=== PATIENT | female | born 1960 | race American Indian/Alaskan Native ===

== ENCOUNTER 2016-07-28 20:30 | Emergency (ER) | payer MEDICAID ==
[2016-07-28 20:49] VITALS: BP 137/97; PULSE 90; RESP 13; TEMP 97.9; O2SAT 98
--- NOTE | 2016-07-28 21:05 | C.PDOC ---
History Of Present Illness 55 year old patient presents to the ED complaining of left 3rd toe pain for unclear period of time. . Patient states she has been seen by her information technology associate who referred her to pain management for her foot issues. pt is vague about when this toe pain started. Patient states she was taking Percocet, but ran out, no rx listed on [place] mechanical commissioning engineer aware for pt. she denies fever and chills. pt is poor historian and gives vague history Time Seen by Provider: 07/28/16 20:48 Chief Complaint (Nursing): Lower Extremity Problem/Injury History Per: Patient History/Exam Limitations: no limitations Onset/Duration Of Symptoms: Other Current Symptoms Are (Timing): Still Present Severity: Mild Pain Scale Rating Of: 3 Recent travel outside of the [place]: No Past Medical History Reviewed: Historical Data, Nursing Documentation, Vital Signs Vital Signs: Last Vital Signs Temp 97.9 F 07/28/16 20:48 Pulse 90 07/28/16 20:48 Resp 13 07/28/16 20:48 BP 137/97 H 07/28/16 20:48 Pulse Ox 98 07/28/16 23:09 - Medical History PMH: Asthma, HTN Family History: States: Unknown Family Hx - Social History Hx Alcohol Use: No Hx Substance Use: No Review Of Systems Except As Marked, All Systems Reviewed And Found Negative. Constitutional: Negative for: Fever Musculoskeletal: Positive for: Foot Pain (left 3rd toe pain) Neurological: Negative for: Weakness, Numbness Physical Exam - Physical Exam Appears: Non-toxic, No Acute Distress Skin: Warm, Dry Extremity: Normal ROM, No Pedal Edema, No Calf Tenderness, Capillary Refill (<2 seconds), No Deformity, Other (swelling and discoloration to the left middle toe ; <2 seconds capillary refill; rest of the left foot is non-tender; normal pedal pulse, mild warmth to dorsum left foot and middle toe) Neurological/Psych: Oriented x3, Normal Motor, Normal Sensation Gait: Steady ED Course And Treatment O2 Sat by Pulse Oximetry: 98 (room air) Pulse Ox Interpretation: Normal - Other Rad left 3rd toe X-Ray: Interpreted by Me, Viewed By Me Interpretation: fracture to the proximal phalynx of the 4th toe Progress Note: Plan: left 3rd toe x-ray Medical Decision Making Medical Decision Making: no fx on 3rd toe noted, toe swollen and mildly warm, will tx for infection, f/u information technology associate. Disposition Counseled Patient/Family Regarding: Studies Performed, Diagnosis, Need For Followup, Rx Given - Disposition Referrals: Parth Moreno DPM [Staff Provider] - Disposition: HOME/ ROUTINE Disposition Time: 22:15 Condition: STABLE Additional Instructions: Take antibiotics as prescribed. Follow up with Dr Cantor on Wednesday. Prescriptions: Amoxicillin/Clavulanate [Augmentin 875 MG-125 MG] 1 tab PO BID #20 tab Instructions: Cellulitis (ED) Forms: General Discharge Instructions - Clinical Impression Clinical Impression: Cellulitis of toe of left foot - PA / BRANCH LENDING MANAGER / Resident Statement MD/DO has reviewed & agrees with the documentation as recorded. - Scribe Statement The provider has reviewed the documentation as recorded by the Scribe Elza Nguyen All medical record entries made by the Scribe were at my direction and personally dictated by me. I have reviewed the chart and agree that the record accurately reflects my personal performance of the history, physical exam, medical decision making, and the department course for this patient. I have also personally directed, reviewed, and agree with the discharge instructions and disposition.
[2016-07-28] MEDS ORDERED: Amoxicillin-Clav 875-125 mg Tab PO STA (21:57)
[2016-07-28] MEDS ORDERED: Amoxicillin-Clav 875-125 mg Tab PO ONE (22:06)
--- NOTE | 2016-07-29 08:57 | RAD ---
PROCEDURE: Left Foot Radiographs. HISTORY: swollen toe COMPARISON: None. FINDINGS: BONES: Healing fracture distal aspect 4th proximal phalanx. There is callus seen about the fracture. Union is not demonstrated. Nondisplaced. No other fracture identified. JOINTS: Normal. SOFT TISSUES: Normal. OTHER FINDINGS: None. IMPRESSION: Healing fracture 4th proximal phalanx with callus.
== END 2016-07-28 22:40 | disposition home or self-care (01) ==
LOC: C.ER 20:30 → MERGE 20:30 → C.ER 22:40
DX: L03.032 Cellulitis of left toe (principal); I10 Essential (primary) hypertension